=== PATIENT | male | born 1980 | race Hispanic/Latino ===

== ENCOUNTER 2018-06-14 07:20 | Day surgery (SDC) | payer BC ==
[2018-06-11 15:12] VITALS: BP 133/78
[2018-06-11 15:16] LABS: BASOPHILS % (AUTO) 0.6 % (0.0-5.0); EOSINOPHILS % (AUTO) 1.2 % (0.0-8.0); HEMATOCRIT 44.7 % (42-54); LYMPHOCYTES % (AUTO) 18.2 % (21.0-51.0); MEAN CORPUSCULAR HEMOGLOBIN 31.9 pg (27.0-33.0); MEAN CORPUSCULAR HGB CONC 34.8 g/dL (32.0-36.0); MEAN CORPUSCULAR VOLUME 91.7 fL (79-99); MONOCYTES % (AUTO) 5.2 % (3.0-13.0); NEUTROPHILS % (AUTO) 74.8 % (40.0-77.0); PLATELET COUNT (AUTO) 228 K/uL (130-400); RED BLOOD CELL COUNT(AUTO) 4.87 MIL/uL (4.50-6.20); RED CELL DISTRIBUTION WIDTH 12.7 % (11.0-15.5); WHITE BLOOD COUNT (AUTO) 8.3 K/uL (4.8-10.8)
[2018-06-11 15:19] LABS: APPEARANCE,URINE CLOUDY (CLEAR); BILIRUBIN,URINE NEGATIVE (NEGATIVE); COLOR,URINE YELLOW (YELLOW); GLUCOSE, URINE (UA) NEGATIVE (NEGATIVE); KETONES,URINE NEGATIVE (NEGATIVE); LEUKOCYTE ESTERASE ,URINE TRACE (NEGATIVE); NITRATE,URINE NEGATIVE (NEGATIVE); OCCULT BLOOD,URINE LARGE (NEGATIVE); PROTEIN,URINE 100 mg/dL (NEGATIVE); UROBILINOGEN,URINE 0.2 mg/dL (0.2-1.0)
[2018-06-11 15:24] LABS: CREATININE 0.9 mg/dL (0.5-1.5); POTASSIUM 3.9 mmol/L (3.5-5.1)
[2018-06-11 16:21] LABS: RBC,URINE >100 /HPF (0-1)
[2018-06-11 16:22] LABS: BACTERIA,URINE Few /HPF (None Seen)
[2018-06-11 16:23] LABS: SQUAMOUS EPITHELIAL CELL,UR Rare /HPF (0-2)
--- NOTE | 2018-06-13 10:45 | NUR ---
ABNORMAL UA UA RESULTS FAXED TO DR. RUSS'S OFFICE. PER RICHELLE, WILL REPORT TO DR. RUSS AND WILL CALL BACK FOR ANY ORDERS.
--- NOTE | 2018-06-13 16:10 | NUR ---
DIARRHEA PT STATES HES BEEN HAVING DIARRHEA SINCE MONDAY. INFORMED DR. OCTAVIO PEOPLES ASST. STATS TO TRY SOMETHING OVER THE COUNTER AND REPORT IN AM FOR SURGERY. IN REGARDS TO LABS, PER DR. RUSS PROCEED WITH PLANNED PROCEDURE. Curtis VILLEGAS CRNA MADE AWARE OF DIARRHEA. NO ORDERS RECEIVED.
[2018-06-14] VITALS (19 sets, daily range): BP systolic 122–145; BP diastolic 69–93
[~2018-06-14] VITALS: Ht 167.6 cm; Wt 149.1 kg
[~2018-06-14 07:20] MED LIST: L.AC1CAP6 PO
[2018-06-14] MEDS ORDERED: GENTAMICIN 80 MG/NS 100 ML PB 100 ML IV PRN (08:00)
[2018-06-14] MEDS ORDERED: IOHEXOL-350 50ML VIAL IV ONE (08:06)
[2018-06-14] MEDS ORDERED: LACTATED RINGERS 1000ML 1,000 ML IV ONE (08:12)
[2018-06-14] MEDS ORDERED: TAMS-1 PO (08:19)
[2018-06-14] MEDS ORDERED: SUCCINYLCHOLINE 200MG/10ML SYR ONE (08:24)
[2018-06-14] MEDS ORDERED: LIDOCAINE PF 2% 5ML ABBOJECT ONE (08:24)
[2018-06-14] MEDS ORDERED: PROPOFOL 10 MG/ML 20ML VIAL IV ONE (08:25)
[2018-06-14] MEDS ORDERED: ROCURONIUM 10MG/1ML SYR 10 MG/ML ML ONE (08:25)
[2018-06-14] MEDS ORDERED: ONDANSETRON HCL 4 MG/2 ML VIAL ONE (08:25)
[2018-06-14] MEDS ORDERED: MIDAZOLAM HCL 1 MG/ML 2ML VIAL ONE (08:26)
[2018-06-14] MEDS ORDERED: FENTANYL CITRATE PF 50 MCG/1 ML 2ML VIAL ONE (08:27)
[2018-06-14] MEDS: ZOSYN 3.375GM+NS 50ML 50 ML IV PRN ×2 (08:49→09:40)
[2018-06-14] MEDS ORDERED: FENTANYL CITRATE PF 50 MCG/1 ML 5ML AMP IV ONE (09:28)
== END 2018-06-14 12:20 | disposition home or self-care (01) ==
LOC: DAH 07:20
PROVIDERS: ATTEND Urology
DX: N20.0 Calculus of kidney (principal); E66.01 Morbid (severe) obesity due to excess calories; E78.5 Hyperlipidemia, unspecified; Z98.890 Other specified postprocedural states; Z79.899 Other long term (current) drug therapy
CPT/HCPCS: 36415; 52356; 74021; 80048; 81001; 85025; 87088; 96365; A4354; A4358; A4450; A4600; A4649; C1758; C1769; C2617; J0330; J1580; J2001; J2250; J2405; J2543; J2704; J3010 ×2; J7120; 77002; Q9967